=== PATIENT | female | born 1965 | race Caucasian/White ===

== ENCOUNTER → 2019-05-28 08:31 | Outpatient (BNVA) | payer BC, SELFPAY | PROVIDERS: Family Provider Nurse Practitioner Family; PCP Nurse Practitioner Family; Visit Provider Nurse Practitioner Family | DX: I10 Essential (primary) hypertension (principal); E78.5 Hyperlipidemia, unspecified; K21.9 Gastro-esophageal reflux disease without esophagitis | CPT/HCPCS: 36415; 80053; 80061; 85025 ==

== ENCOUNTER → 2019-12-03 08:43 | Outpatient (BNVA) | payer BC, SELFPAY | PROVIDERS: Family Provider Nurse Practitioner Family; PCP Nurse Practitioner Family; Visit Provider Nurse Practitioner Family | DX: I10 Essential (primary) hypertension (principal); E78.5 Hyperlipidemia, unspecified; K21.9 Gastro-esophageal reflux disease without esophagitis | CPT/HCPCS: 80053; 80061; 84443; 85025 ==

== ENCOUNTER → 2020-06-06 16:42 | Outpatient (BNVA) | payer OTHER, SELFPAY | PROVIDERS: Family Provider Nurse Practitioner Family; PCP Nurse Practitioner Family; Visit Provider Nurse Practitioner Family | DX: I10 Essential (primary) hypertension (principal); E78.5 Hyperlipidemia, unspecified; K21.9 Gastro-esophageal reflux disease without esophagitis; M54.41 Lumbago with sciatica, right side | CPT/HCPCS: 80053; 80061; 84443; 85025 ==

== ENCOUNTER → 2020-06-14 16:26 | Outpatient (BNVA) | payer OTHER, SELFPAY | PROVIDERS: Family Provider Nurse Practitioner Family; PCP Nurse Practitioner Family; Visit Provider Nurse Practitioner Family | DX: I10 Essential (primary) hypertension (principal); E78.5 Hyperlipidemia, unspecified; K21.9 Gastro-esophageal reflux disease without esophagitis; M54.41 Lumbago with sciatica, right side; R74.8 Abnormal levels of other serum enzymes | CPT/HCPCS: 72100 ==

== ENCOUNTER → 2020-08-28 11:51 | Outpatient (BNVA) | payer OTHER, SELFPAY | PROVIDERS: Family Provider Nurse Practitioner Family; PCP Nurse Practitioner Family; Visit Provider Nurse Practitioner Family | DX: I10 Essential (primary) hypertension (principal) | CPT/HCPCS: 80053 ==

== ENCOUNTER → 2020-11-13 16:19 | Outpatient (BNVA) | payer OTHER, SELFPAY | PROVIDERS: Family Provider Nurse Practitioner Family; PCP Nurse Practitioner Family; Visit Provider Nurse Practitioner Family | DX: I10 Essential (primary) hypertension (principal); E78.5 Hyperlipidemia, unspecified; K21.9 Gastro-esophageal reflux disease without esophagitis | CPT/HCPCS: 80053; 80061; 84443; 85025 ==

== ENCOUNTER → 2020-12-19 16:05 | Outpatient (BNVA) | payer OTHER, SELFPAY | PROVIDERS: Family Provider Nurse Practitioner Family; PCP Nurse Practitioner Family; Visit Provider Nurse Practitioner Family | DX: R79.89 Other specified abnormal findings of blood chemistry (principal); I10 Essential (primary) hypertension | CPT/HCPCS: 84443 ==

== ENCOUNTER 2021-01-14 12:19 | Emergency (ER) | payer OTHER, SELFPAY ==
[2021-01-14 12:26] VITALS: BP 149/94; PULSE 99; RESP 18; TEMP 36.3; O2SAT 96; BMI 33.1
--- NOTE | 2021-01-14 12:55 | XRR_ITS ---
PROCEDURE INFORMATION: Exam: XR Lumbosacral Spine Exam date and time: 01/14/2021 12:55 PM Age: 55 years old Clinical indication: Low back pain TECHNIQUE: Imaging protocol: XR of the lumbosacral spine. Views: 2 or 3 views. COMPARISON: CR XR lumbar spine 2-3V* [id number] 06/14/2020 4:26 PM FINDINGS: Bones/joints: Mild scoliosis and degenerative change. Anatomic alignment. Soft tissues: Unremarkable. XR/XR lumbar spine 2-3V* [id number] IMPRESSION: Mild scoliosis and degenerative change.
--- NOTE | 2021-01-14 12:57 | W.ED.GENADLT ---
HPI - General Adult General: Chief complaint: Back Pain/Injury Stated complaint: LOWER BACK PAIN RUNNING DOWN BOTH LEGS Time Seen by Provider: 01/14/21 12:32 History of Present Illness: HPI narrative: CC: Back pain HPI: 55yo patient w/ hx of HLD, HTN presenting to the ED with acute worsenign back pain x 3 days. Pain started 3 days ago after patient went home and now has had significant left lower back pain with radiation to the L leg. Patient reports significant bending at work. Endorsing taking tylenol, Nyquil for pain without symptom improvements. Today, patients denies trauma to the back, fever/chill/IVDU, LE weakness, saddle anesthesia/bowel incontinence/bladder incontinence, or hx of recent weight loss or cancer. In addition, he does not have a history of kidney stone or urinary symptoms/hx of UTI. Onset: 3 days ag Duration: 3 days Location: Back pain with radiation to the L leg Severity: moderate Review of Systems Narrative: Constitutional: No fever, no chills. HEENT: No vision changes CV: No chest pain, no palpitations PULM: No cough, no dyspnea. GI: No abdominal pain, no N/V/D. : No dysuria MSKEL: No edema SKIN: No new rashes, no lesions. NEURO: No headache, no focal weakness. HEME: No visible bruises PSYCH: Normal mood BACK: +L-sided lumbar paraspinal pain radiating to the leg [facility] ED PFSH: Medical History Dyslipidemia GERD (gastroesophageal reflux disease) HTN (hypertension) Surgical History No pertinent past surgical history Family History Father Cancer Hypertension Mother Cancer Diabetes Hypertension Stroke Denies family history of CAD (coronary artery disease) Suicide Lung disease Social History Smoking and tobacco status: never smoked Alcohol intake: never Lives independently: Yes Household members: spouse Housing: House Marital status: History of recent travel: No Physical Exam Narrative: EXAM NARRATIVE: Head: Atraumatic Eyes: PERRL, conjunctiva without injection ENT: Mucous membrane moist NECK: Supple without lymphadenopathy LUNGS: CTA CV: RRR ABDOMEN: Soft, nontender EXTREMITY: Normal ROM, 5/5 strength in hip/knee/ankle f/e bilaterally, sensation intact bilaterally in the LE, +straight leg test on L side SKIN: No rash or erythema NEURO: Awake and alert. No focal motor deficits. PSYCH: Normal mood and affect. : No saddle anesthesia BACK: +mild +L3 mildline and paraspinal tenderness, no step off, obvious deformity, hip stable,+ L paraspinal lumbar tenderness with radiation to the L side Course Vital Signs: Vital signs: Vital Signs Temperature 97.4 F L 01/14/21 12:26 Pulse Rate 86 01/14/21 14:15 Respiratory Rate 18 01/14/21 14:15 Blood Pressure 161/90 01/14/21 14:15 Pulse Oximetry 96 01/14/21 14:15 MDM - General Adult MDM Narrative: Medical decision making narrative: 55yo patient w/ hx of chronic lumbar pain with radiation to the L side presenting to the ED with acute worsening lumbar pain x 4 days, now has pain with ambulation. Neurological exam including LE exam intact. The Patient is able to bear weight on legs and ambulate with moderate pain. No red flags of IVDU/fever, hx or symptomatology of cancer w/ mets to the bones, neurological findings or bowel or bladder incontinence, or acute trauma/fracture of the vertebral columns. [1:30PM] On reassessment, the patient reports the pain is significantly improved with medications. Patient is now able to ambulate in the ED with only mild pain. At the present time, I have discussed the importance for the patient to follow up with orthopedics SAVANNAH and the patient agrees. No suspicion for acute cord compression at this time. Rx: Tylenol 500mg Q6Hrs, Prednisone 50mg daily x 5 doses, Lidocaine patch Qdaily, and norflex 100mg BID PRN pain Disposition: Discharge. Patient is given SRP for any focal weakness, intractable pain, fever/chill, any signs of bowel or bladder incontinence. Patient is instructed to follow up with the orthopedics provider. I have provided an additional orthopedic referral for the patient should the patient need it. Patient verbalizes understanding and plans to do so in the next fews. Imaging Data^: Other Imaging: Radiologist's impression: [facility] [id number] [place], [place] [address]FYzt ReportSigned Patient: Jose Angel Montesinos #: [id number]: 1965Acct#:[id number]/Sex: 55 / FADM Date: 01/14/21Loc: ERRoom/Bed:Attending Dr: Ordering Provider/Ordering MD: Sydnie Phelan MD Date of Service: 01/14/21 Procedure(s): XR lumbar spine 2-3V* [id number] Accession Number(s): [id number] Report Number: [id number] PROCEDURE INFORMATION: Exam: XR Lumbosacral Spine Exam date and time: 01/14/2021 12:55 PM Age: 55 years old Clinical indication: Low back pain TECHNIQUE: Imaging protocol: XR of the lumbosacral spine. Views: 2 or 3 views. COMPARISON: CR XR lumbar spine 2-3V* [id number] 06/14/2020 4:26 PM FINDINGS: Bones/joints: Mild scoliosis and degenerative change. Anatomic alignment. Soft tissues: Unremarkable. XR/XR lumbar spine 2-3V* [id number] IMPRESSION: Mild scoliosis and degenerative change. Dictated By:Collins Luong MDSigned By:Collins Luong MDSigned Date/Time:01/14/21 1359DD/ 1358 Discharge Plan Discharge Patient Disposition: Home Clinical Impression: Lower back pain Condition: Stable Prescriptions: New Tylenol Extra Strength 500 mg tablet 500 mg PO TID PRN (Reason: pain) 30 Days Qty: 90 RF: 0 lidocaine 5 % adhesive patch,medicated 1 patch topical DAILY PRN (Reason: back pain) 30 Days Qty: 30 RF: 0 prednisone 50 mg tablet 50 mg PO DAILY PRN (Reason: back pain) 5 Days Qty: 5 RF: 0 orphenadrine citrate 100 mg tablet extended release 100 mg PO BID PRN (Reason: back pain) 10 Days Qty: 20 RF: 0 No Action lisinopril 40 mg tablet 40 mg PO ONCE 30 Days Qty: 30 RF: 5 famotidine 40 mg tablet 40 mg PO .hs 30 Days Qty: 30 RF: 5 pravastatin 20 mg tablet 20 mg PO DAILY 30 Days Qty: 30 RF: 5 Discharge Orders: Discharge ED (Routine); Ordered 01/14/21 Ordered By: Sydnie Phelan Referrals: Radha Vazquez FNP-C [Primary Care Provider] - Discharge Diet: Advance as tolerated Discharge Activity: Resume usual activity Patient Instructions: Acute Low Back Pain (ED) Activity Restrictions/Additional Instructions: Please follow up with physical therapy and orthopedics provider as needed for back pain. Our clinical case manager will call you. If you do not hear from us, you can request therapy with your PCP. Come back if you have worsening pain, leg weakness, difficulty controlling your bowel or bladder, or any new or concerning issues. Stand Alone Forms: Work/School Release Coding Level of Care Code ED Sales Negotiator for Karlos Murphy
[2021-01-14] MEDS: predniSONE 20 mg Tablet 60 MG PO (13:04)
[2021-01-14] MEDS: acetaminophen-codeine 300-30mg Tablet 1 TAB PO (13:05)
[2021-01-14] MEDS: lidocaine 5% Patch 1 PATCH TOPICAL (13:28)
[2021-01-14] MEDS: ondansetron 4 MG Tablet PO (13:35)
[2021-01-14 14:15] VITALS: BP 161/90; PULSE 86; RESP 18; O2SAT 96
--- NOTE | 2021-01-15 09:44 | DCPLANNER ---
manager pet had message to schedule a followup appointment for patient with ortho and physical therapy. manager pet called the ortho clinic, spoke with Alona, gave clinic patients information. manager pet was told that patients information would be printed and reviewed. Clinic will call patient with appointment information. manager pet called physical therapy about a referral to physical therapy. manager pet did not have an order for this referral. manager pet was told that patient would need to follow up with primary care to get an order for physical therapy. manager pet called patient at phone number [phone], a voicemail was left for patient to return medical case manager phone call. manager pet also called phone number [phone], unable to speak with patient at this time.
--- NOTE | 2021-01-16 08:10 | DCPLANNER ---
Patient has a follow up appointment scheduled for Saturday, January 23, 2021 at 8:15 with Christel Sanchez at ortho. Clinic will call patient with appointment information.
--- NOTE | 2021-01-24 13:34 | DCPLANNER ---
Patient had an appointment scheduled for 01.23.21 - appointment was rescheduled.
== END 2021-01-14 14:16 | disposition home or self-care (01) ==
PROVIDERS: Emergency Provider Emergency Medicine; PCP Nurse Practitioner Family
DX: M54.5 Low back pain (principal); E78.5 Hyperlipidemia, unspecified; I10 Essential (primary) hypertension
CPT/HCPCS: 72100; 99283; J7512; Q0162

== ENCOUNTER → 2021-01-18 08:46 | Outpatient (BNVA) | payer OTHER, SELFPAY | PROVIDERS: PCP Nurse Practitioner Family; Visit Provider Nurse Practitioner Family | DX: Z20.822 Contact with and (suspected) exposure to COVID-19 (principal) | CPT/HCPCS: 87635 ==

== ENCOUNTER → 2021-07-04 16:35 | Outpatient (BNVA) | payer OTHER, SELFPAY | PROVIDERS: PCP Nurse Practitioner Family; Visit Provider Nurse Practitioner Family | DX: I10 Essential (primary) hypertension (principal); K21.9 Gastro-esophageal reflux disease without esophagitis; E78.5 Hyperlipidemia, unspecified | CPT/HCPCS: 80053; 80061; 84443; 85025 ==

== ENCOUNTER → 2021-12-11 16:08 | Outpatient (BNVA) | payer OTHER, SELFPAY | PROVIDERS: PCP Nurse Practitioner Family; Visit Provider Nurse Practitioner Family | DX: I10 Essential (primary) hypertension (principal); E11.65 Type 2 diabetes mellitus with hyperglycemia; K21.9 Gastro-esophageal reflux disease without esophagitis; E78.5 Hyperlipidemia, unspecified; L91.8 Other hypertrophic disorders of the skin; Z12.39 Encounter for other screening for malignant neoplasm of breast | CPT/HCPCS: 80053; 80061; 84443; 85025 ==

== ENCOUNTER 2022-01-02 15:18 | Outpatient (CLI) | payer OTHER, SELFPAY ==
--- NOTE | 2022-01-02 15:24 | MM_ITS ---
WS: [id number] BILATERAL 3D TOMOSYNTHESIS DIGITAL SCREENING MAMMOGRAPHY WITH CAD CLINICAL INFORMATION: Z12.39 - Encounter for other screening for malignant neop... HISTORY: Screening mammogram. No current complaints. COMPARISON: None. TECHNIQUE: Bilateral CC and MLO views. FINDINGS: The breasts are composed of heterogeneous fibroglandular density tissue, which can limit the detectio n of small underlying mass lesions. Tiny punctate calcifications. Clustered calcifications. 6 mm ovoi d nodule subareolar RIGHT breast. Recommend ultrasound RIGHT breast in further evaluation. Unremarkable LEFT breast. MM/[place] [id number] IMPRESSION: BI-RADS: 0-Incomplete: Need additional imaging evaluation FOLLOW UP: Need Additional Imaging Recommendation ultrasound RIGHT breast in further evaluation of the subareolar nodule.
== END 2022-01-02 15:19 | disposition home or self-care (01) ==
LOC: RAD 15:19
PROVIDERS: PCP Nurse Practitioner Family; Visit Provider Nurse Practitioner Family
DX: Z12.31 Encounter for screening mammogram for malignant neoplasm of breast (principal)
CPT/HCPCS: 77063; 77067

== ENCOUNTER 2022-01-18 14:41 | Outpatient (CLI) | payer OTHER, SELFPAY ==
--- NOTE | 2022-01-18 14:47 | US_ITS ---
WS: [id number] ULTRASOUND BREAST RIGHT TECHNIQUE: Ultrasound right breast focused area of concern. CLINICAL INFORMATION: R92.8 - Other abnormal and inconclusive findings on diagn... COMPARISON: None. FINDINGS: Ultrasound RIGHT breast at the areola. Hypoechoic complex lesion 8 o'clock position areola with inter nal complex echogenicity. This is indeterminant and recommend further evaluation ultrasound-guided bi opsy. Lesion measures approximately 6.1 x 3.6 x 6.5 mm US/US breast RT limited* [id number] IMPRESSION: BI-RADS 4 suspicious FOLLOW UP: Ultrasound-guided biopsy
== END 2022-01-18 14:42 | disposition home or self-care (01) ==
LOC: RAD 14:42
PROVIDERS: PCP Nurse Practitioner Family; Visit Provider Nurse Practitioner Family
DX: R92.8 Other abnormal and inconclusive findings on diagnostic imaging of breast (principal)
CPT/HCPCS: 76642

== ENCOUNTER 2022-02-14 11:54 | Outpatient (CLI) | payer OTHER, SELFPAY ==
--- NOTE | 2022-02-14 13:09 | US_ITS ---
WS: [id number] ULTRASOUND-GUIDED RIGHT BREAST BIOPSY HISTORY: N64.9 - Disorder of breast, unspecified COMPARISON: 01/18/2022 and 01/02/2022 Procedure, risks and complications are explained to the patient. Medications are reviewed. Consent is obtained. The mass in the RIGHT breast is localized with ultrasound. Mass localizes to the areolar at 8:00. Ski n is cleansed with ChloraPrep and anesthetized with 1% buffered lidocaine. Small dermatome is made. U nder sterile conditions mass is biopsied with a 14-gauge Achieve needle. Only a single biopsy was per formed. The mass completely collapsed after the first biopsy. There is no residual mass. Breast tissue marker (Bard ultrasound enhanced ribbon): None. Patient left the radiology suite with no complications. Patient is instructed to return to [facility] or [facility] with any concerns. US/[place] [id number] IMPRESSION: 1. Uncomplicated core needle biopsy complex cystic mass at 8:00. Mass complete ly collapsed after the initial biopsy. PATHOLOGY: Benign fibrocystic changes and apocrine metaplasia. No malignancy. RECOMMENDATION: Return to annual screening mammography.
== END 2022-02-14 11:55 | disposition home or self-care (01) ==
PROVIDERS: PCP Nurse Practitioner Family; Visit Provider Nurse Practitioner Family
DX: N64.9 Disorder of breast, unspecified (principal); N63.13 Unspecified lump in the right breast, lower outer quadrant; N60.81 Other benign mammary dysplasias of right breast
CPT/HCPCS: 19083; 88305

== ENCOUNTER → 2022-06-17 14:38 | Outpatient (BNVA) | payer OTHER, SELFPAY | PROVIDERS: PCP Nurse Practitioner Family; Visit Provider Nurse Practitioner Family | DX: I10 Essential (primary) hypertension (principal); K21.9 Gastro-esophageal reflux disease without esophagitis; E78.5 Hyperlipidemia, unspecified; Z12.4 Encounter for screening for malignant neoplasm of cervix; L21.9 Seborrheic dermatitis, unspecified | CPT/HCPCS: 80053; 80061; 84443; 85025 ==

== ENCOUNTER → 2022-07-30 09:38 | Outpatient (BNVA) | payer OTHER, SELFPAY | PROVIDERS: PCP Nurse Practitioner Family; Visit Provider Nurse Practitioner Family | DX: R05.9 Cough, unspecified (principal); J06.9 Acute upper respiratory infection, unspecified; R09.81 Nasal congestion | CPT/HCPCS: 87426 ==

== ENCOUNTER 2022-10-26 18:59 | Emergency (ER) | payer OTHER, SELFPAY ==
[2022-10-26 19:13] VITALS: BP 148/75; PULSE 98; RESP 16; TEMP 36.8; O2SAT 97; BMI 35.4
--- NOTE | 2022-10-26 20:03 | CTR_ITS ---
PROCEDURE INFORMATION: Exam: CT Head Without Contrast Exam date and time: 10/26/2022 8:10 PM Age: 57 years old Clinical indication: Pain; Headache; Patient HX: FRIEDMAN with n/v; Additional info: Headache, vomiting TECHNIQUE: Imaging protocol: Computed tomography of the head without contrast. Radiation optimization: All CT scans at this facility use at least one of these dose optimization techniques: automated exposure control; mA and/or kV adjustment per patient size (includes targeted exams where dose is matched to clinical indication); or iterative reconstruction. REPORTING DATA: Count of CT and Cardiac NM exams in prior 12 months: This patient has received 0 known CTs and 0 known cardiac nuclear medicine studies in the 12 months prior to the current study. COMPARISON: No relevant prior studies available. RADIATION DOSE METRICS: Total DLP (mGy-cm): 1007.11 FINDINGS: Brain: Normal. No hemorrhage. Unremarkable white matter. No mass effect. Cerebral ventricles: No ventriculomegaly. Paranasal sinuses: Several in mucous retention cysts versus polyps in the visualized portions of the paranasal sinuses measuring up to approximately 11 mm in size in the right maxillary sinus. Mastoid air cells: Visualized mastoid air cells are well aerated. Bones/joints: Unremarkable. No acute fracture. Soft tissues: Unremarkable. CT/CT head wo con* [id number] IMPRESSION: Negative for intracranial hemorrhage or mass effect.
--- NOTE | 2022-10-26 20:04 | W.ED.NAVMDI ---
HPI - Nausea/Vomiting/Diarrhea General: Chief complaint: Nausea/Vomiting/Diarrhea Stated complaint: Nausea Headache Time Seen by Provider: 10/26/22 19:24 Source: patient History of Present Illness: 57-year-old female with no real history of headache. She presents with body aches all over, significant headache, and vomiting for the past 24 hours or so. 2 episodes of loose stool. No fever. No other specific symptoms including no cough. No history of bug bites. MD elicited complaint: nausea and vomiting Pertinent past history: other Onset (ago): hour(s) Description of vomiting: food contents Description of diarrhea: watery Associated nausea: Yes Associated abdominal pain: No Location of pain: None Exacerbating factors: eating Relieving factors: none Associated symtoms: Reports headache(s), anorexia, myalgias and nausea; Denies altered mental status, change in vision, chest pain, cough, diaphoresis, decreased urine output, dizziness, fevers/chills, rash or short of breath Review of Systems Const: Denies: fever(s) or diaphoresis Eyes: Denies: change in vision ENMT: Denies: throat pain Card: Denies: chest pain Resp: Denies: dyspnea, productive cough or non-productive cough GI: Reports: nausea; Denies: abdominal pain : Denies: flank pain Skin/Breast: Denies: rash Neuro: Reports: headache(s); Denies: dizziness PFSH ED PFSH: Medical History Dyslipidemia GERD (gastroesophageal reflux disease) HTN (hypertension) Rosacea Surgical History No pertinent past surgical history Family History Father Cancer Hypertension Mother Cancer Diabetes Hypertension Stroke Denies family history of CAD (coronary artery disease) Suicide Lung disease Social History Smoking and tobacco status: never smoked Second hand smoke exposure: No Smoking risk assessment/counseling performed?: No Alcohol intake: never Desire information about alcohol rehabilitation?: No Counseling given: No Substance/Drug Use: unknown Desire information about substance/drug rehabilitation?: No Counseling given: No Adopted: No Caregiver/support person: No Lives independently: Yes Household members: spouse Housing: House Marital status: service: No Do you think of yourself as: Straight/Heterosexual Current gender identity: Female Physical Exam Const: COMMON NORMALS: no acute distress EXAM LIMITATIONS: no altered mental status GENERAL APPEARANCE: cooperative; not ill appearing and not frail appearing HENMT: COMMON NORMALS: normocephalic, atraumatic and Normal external nose present HEAD & SCALP: normocephalic and atraumatic FACE & SINUS: normal facial exam and face symmetric NOSE: Normal external nose present Eye: COMMON NORMALS: Equal, round and reactive pupils present and EOMs intact bilaterally PUPIL: Yes Equal, round and reactive pupils present Neck/C-Spine: GENERAL: Yes trachea midline Chest: CHEST: Yes Symmetrical chest wall rise Resp: COMMON NORMALS: normal respiratory effort, No retractions, No use of accessory muscles and clear to auscultation bilaterally AUSCULTATION: clear to auscultation bilaterally Cardio: COMMON NORMALS: regular rate and regular rhythm RATE: regular rate RHYTHM: regular rhythm GI: COMMON NORMALS: Normal to inspection, nondistended, normoactive bowel sounds present Extremity: COMMON NORMALS: no pedal edema Neuro: RICK COMA SCALE: document GCS findings Rick coma scale eye opening: Spontaneous Coleridge coma scale verbal response: Orientated Rick coma scale motor response: Obey commands Coleridge coma scale total score: 15 SENSORY EXAM: Yes extremities (intact) Psych: COMMON NORMALS: speech normal SPEECH: Yes normal speech Skin: COMMON NORMALS: no rashes or lesions noted GENERAL SKIN EXAM: no rashes or lesions noted Course Vital Signs: Vital signs: Vital Signs Temperature 98.2 F 10/26/22 19:13 Pulse Rate 80 10/26/22 22:39 Respiratory Rate 18 10/26/22 22:39 Blood Pressure 141/92 10/26/22 22:39 Pulse Oximetry 96 10/26/22 22:39 Oxygen Delivery Me thod Room Air 10/26/22 21:30 MDM - Nausea/Vomiting/Diarrhea Medical Decision Making 57-year-old female with headache nausea and vomiting. White blood cell count is 11.5. No significant left shift. BMP is normal. Liver enzymes are normal. Lipase is 31. Urinalysis is negative. COVID antigen testing is negative. Head CT is negative for intracranial hemorrhage or mass effect. She is improved after IV fluids and medication. She will be discharged home, to monitor her symptoms. Return for any worsening or return of symptoms. Antiemetic scheduled for the first 24 hours then as needed. Lab Data 10/26/22 19:57 10/26/22 19:[address] 10/26/22 20:03 IMPRESSION: Negative for intracranial hemorrhage or mass effect. Laboratory Results WBC 11.5 10^3/uL (4.0-10.0) H 10/26/22 19:57 RBC 4.46 10^6/uL (4.1-5.3) 10/26/22 19:57 Hgb 13.7 g/dL (11.5-15.3) 10/26/22 19:57 Hct 40.4 % (37.0-47.0) 10/26/22 19:57 MCV 90.6 fl (81-99) 10/26/22 19:57 MCH 30.7 pg (28.0-34.0) 10/26/22 19:57 MCHC 33.9 g/dL (30.0-36.0) 10/26/22 19:57 RDW 12.1 % (12.1-15.1) 10/26/22 19:57 Plt Count 271 10^3/cmm (130-400) 10/26/22 19:57 MPV 10.6 fL (7.4-10.4) H 10/26/22 19:57 Neut % (Auto) 74.0 % 10/26/22 19:57 Lymph % (Auto) 14.1 % 10/26/22 19:57 Calvert % (Auto) 9.7 % 10/26/22 19:57 Eos % (Auto) 1.6 % 10/26/22 19:57 Baso % (Auto) 0.3 % 10/26/22 19:57 Neut # (Auto) 8.55 10^3/uL (1.8-7.7) H 10/26/22 19:57 Lymph # (Auto) 1.6 10^3/uL (0.8-4.8) 10/26/22 19:57 Calvert # (Auto) 1.1 10^3/uL (0.2-0.9) H 10/26/22 19:57 Eos # (Auto) 0.2 10^3/uL (0.0-0.8) 10/26/22 19:57 Baso # (Auto) 0.0 10^3/uL (0.0-0.1) 10/26/22 19:57 Nucleated RBC % (auto) 0 % 10/26/22 19:57 Nucleated RBCs # 0.0 /100WBC 10/26/22 19:57 Sodium 138 mmol/L (136-145) 10/26/22 19:57 Potassium 4.1 mmol/L (3.5-5.1) 10/26/22 19:57 Chloride 102 mmol/L (98-107) 10/26/22 19:57 Carbon Dioxide 25 mmol/L (22-29) 10/26/22 19:57 Anion Gap 15.1 (5-19) 10/26/22 19:57 BUN 11 mg/dL (6-20) 10/26/22 19:57 Creatinine 0.9 mg/dL (0.5-0.9) 10/26/22 19:57 GFR Calculation 64.5 mL/min (90-130) L 10/26/22 19:57 Glucose 93 mg/dL (65-115) 10/26/22 19:57 Calculated Osmolality 285 mOsm/kg (285-295) 10/26/22 19:57 Calcium 9.0 mg/dL (8.5-10.5) 10/26/22 19:57 Total Bilirubin 0.5 mg/dL (0.15-1.2) 10/26/22 19:57 AST 19 U/L (0-32) 10/26/22 19:57 ALT 21 U/L (0-33) 10/26/22 19:57 Alkaline Phosphatase 84 U/L (35-105) 10/26/22 19:57 C-Reactive Protein 28.4 mg/L (0.0-4.9) H 10/26/22 19:57 Total Protein 7.3 g/dL (6.6-8.7) 10/26/22 19:57 Albumin 4.1 g/dL (3.5-5.2) 10/26/22 19:57 Globulin 3.2 g/dL (1.3-4.6) 10/26/22 19:57 Lipase 31 U/L (13-60) 10/26/22 19:57 Urine Color Yellow (Yellow) 10/26/22 21:42 Urine Appearance Hazy (CLEAR) A 10/26/22 21:42 Urine pH 5 (5-7) 10/26/22 21:42 Ur Specific Vilas 1.020 (1.005-1.030) 10/26/22 21:42 Urine Protein Neg (Negative) 10/26/22 21:42 Urine Glucose (UA) Norm (Normal) 10/26/22 21:42 Urine Ketones 1+ (Negative) H 10/26/22 21:42 Urine Blood Neg (Negative) 10/26/22 21:42 Urine Nitrate Negative (Negative) 10/26/22 21:42 Urine Bilirubin Neg (Negative) 10/26/22 21:42 Urine Urobilinogen Norm mg/dL (Negative) 10/26/22 21:42 Ur Leukocyte Esterase Trace (Negative) H 10/26/22 21:42 Urine RBC None /hpf (0-2) 10/26/22 21:42 Urine WBC 0-4 /hpf (0-5) H 10/26/22 21:42 Ur Squamous Epith Cells 0-4 /hpf (0-5) H 10/26/22 21:42 Amorphous Sediment Not Reportable 10/26/22 21:42 Urine Bacteria 1+ /hpf (NONE) H 10/26/22 21:42 Urine Mucus 2+ /hpf 10/26/22 21:42 SARS-CoV-2 Ag (Rapid) negative (Negative) 10/26/22 21:13 Discharge Plan Discharge Patient Disposition: Home Clinical Impression: Gastroenteritis Condition: Stable Prescriptions: New ondansetron 4 mg film 4 mg PO DAILY PRN (Reason: nausea and vomiting) Qty: 10 0RF No Action Hair,Skin and Nails(FA-biotin) 66.7-1,000 mcg tablet PO famotidine 40 mg tablet 40 mg PO .hs 30 Days Qty: 30 5RF pravastatin 20 mg tablet 20 mg PO DAILY 30 Days Qty: 30 5RF lisinopril 40 mg tablet 40 mg PO DAILY Qty: 30 2RF metformin 500 mg tablet extended release 24 hr 1,000 mg PO DAILY Qty: 60 2RF metronidazole [Metrogel] 1 % gel 1 applic topical DAILY Qty: 60 0RF triamcinolone acetonide 0.5 % ointment 1 applic topical DAILY Qty: 15 2RF Rx Instructions: apply to neck, ears and hands furosemide [Lasix] 20 mg tablet 20 mg PO QAM Qty: 30 2RF Discharge Orders: Discharge ED (Routine); Ordered 10/26/22 Ordered By: George Castillo Referrals: Radha Vazquez FNP-C [Primary Care Provider] - 1-3 days Patient Instructions: Gastroenteritis (ED) Activity Restrictions/Additional Instructions: Take prescribed medications every 4 hours while awake for the first 24 hours scheduled. Then you may take as needed for nausea and vomiting. Start with a liquid diet for at least 12 hours, if no vomiting, you may increase as tolerated. Return for worsening pain, worsening headache, vomiting liquids despite medications, any other concerning symptoms. Coding Level of Care Code ED Space Sciences Director for Karlos Murphy
[2022-10-26 20:26] LABS: Basophils % 0.3 %; Eosinophils # 0.2 10^3/uL (0.0-0.8); Eosinophils % 1.6 %; Hematocrit 40.4 % (37.0-47.0); Hemoglobin 13.7 g/dL (11.5-15.3); Lymphocytes # 1.6 10^3/uL (0.8-4.8); Lymphocytes % 14.1 %; Mean Corpuscular HGB Conc 33.9 g/dL (30.0-36.0); Mean Corpuscular Hemoglobin 30.7 pg (28.0-34.0); Mean Corpuscular Volume 90.6 fl (81-99); Mean Platelet Volume 10.6 fL (7.4-10.4); Monocytes # 1.1 10^3/uL (0.2-0.9); Monocytes % 9.7 %; Neutrophils # 8.55 10^3/uL (1.8-7.7); Nucleated Red Blood Cells % 0 %; Platelet Count 271 10^3/cmm (130-400); Red Blood Count 4.46 10^6/uL (4.1-5.3); Red Cell Distribution Width 12.1 % (12.1-15.1); White Blood Count 11.5 10^3/uL (4.0-10.0)
[2022-10-26] MEDS: sodium chloride 0.9% 1,000 ML 999 ML IV (20:27)
[2022-10-26] MEDS: ondansetron 2 mg/ML SDV 2 mL 4 MG IVP (20:28)
[2022-10-26] MEDS: morphine 4 mg/mL SDV 1 mL IVP (20:30)
[2022-10-26 20:35] VITALS: BP 172/91; PULSE 85; O2SAT 97
[2022-10-26 20:54] LABS: Alanine Aminotransferase 21 U/L (0-33); Albumin Level 4.1 g/dL (3.5-5.2); Alkaline Phosphatase 84 U/L (35-105); Anion Gap 15.1 (5-19); Aspartate Amino Transferase 19 U/L (0-32); Blood Urea Nitrogen 11 mg/dL (6-20); C Reactive Protein 28.4 mg/L (0.0-4.9); Carbon Dioxide 25 mmol/L (22-29); Chloride 102 mmol/L (98-107); Globulin 3.2 g/dL (1.3-4.6); Glomerular Filtration Rate 64.5 mL/min (90-130); Glucose 93 mg/dL (65-115); Lipase 31 U/L (13-60); Osmolality Calculated 285 mOsm/kg (285-295); Potassium 4.1 mmol/L (3.5-5.1); Sodium 138 mmol/L (136-145); Total Bilirubin 0.5 mg/dL (0.15-1.2); Total Protein 7.3 g/dL (6.6-8.7)
[2022-10-26 21:30] VITALS: BP 170/87; PULSE 89; O2SAT 96
[2022-10-26 21:36] LABS: SARS Covid-2 Antigen negative (Negative)
[2022-10-26 21:54] LABS: Add Urine Microscopic? YES; Bilirubin Urine Neg (Negative); Blood Urine Neg (Negative); Glucose Urine UA Norm (Normal); Ketones Urine 1+ (Negative); Leukocyte Esterase Urine Trace (Negative); Nitrate Urine Negative (Negative); Protein Urine Neg (Negative); Urine Appearance Hazy (CLEAR); Urine Color Yellow (Yellow); Urobilinogen Urine Norm (Negative); pH Urine 5 (5-7)
[2022-10-26 21:58] LABS: Bacteria Urine 1+ /hpf; Mucus Urine 2+ /hpf; Squamous Epithelial Cell Urine 0-4 /hpf (0-5); WBC Urine 0-4 /hpf (0-5)
[2022-10-26 22:39] VITALS: BP 141/92; PULSE 80; RESP 18; O2SAT 96
== END 2022-10-26 22:34 | disposition home or self-care (01) ==
PROVIDERS: Emergency Provider Emergency Medicine; PCP Nurse Practitioner Family
DX: K52.9 Noninfective gastroenteritis and colitis, unspecified (principal); Z79.84 Long term (current) use of oral hypoglycemic drugs; Z20.822 Contact with and (suspected) exposure to COVID-19; E78.5 Hyperlipidemia, unspecified; I10 Essential (primary) hypertension
CPT/HCPCS: 36415; 70450; 80053; 81001; 83690; 85025; 86140; 87426; 96361; 96374; 96375; 99285; J2270; J2405; J7030

== ENCOUNTER → 2023-03-11 16:02 | Outpatient (BNVA) | payer OTHER, SELFPAY | PROVIDERS: PCP Nurse Practitioner Family; Visit Provider Nurse Practitioner Family | DX: I10 Essential (primary) hypertension (principal); E78.5 Hyperlipidemia, unspecified; L21.9 Seborrheic dermatitis, unspecified; K21.9 Gastro-esophageal reflux disease without esophagitis | CPT/HCPCS: 80053; 80061; 84443; 85025 ==

== ENCOUNTER → 2023-10-02 16:10 | Outpatient (BNVA) | payer OTHER, SELFPAY | PROVIDERS: PCP Nurse Practitioner Family; Visit Provider Nurse Practitioner Family | DX: I10 Essential (primary) hypertension (principal) | CPT/HCPCS: 80053; 80061; 84443; 85025 ==

== ENCOUNTER → 2023-11-12 15:57 | Outpatient (BNVA) | payer OTHER, SELFPAY | PROVIDERS: PCP Nurse Practitioner Family; Visit Provider Nurse Practitioner Family | DX: R73.09 Other abnormal glucose (principal); R79.89 Other specified abnormal findings of blood chemistry | CPT/HCPCS: 80053; 83036 ==

== ENCOUNTER → 2023-11-20 15:51 | Outpatient (BNVA) | payer OTHER, SELFPAY | PROVIDERS: PCP Nurse Practitioner Family; Visit Provider Family Medicine | DX: M25.532 Pain in left wrist (principal); M79.642 Pain in left hand | CPT/HCPCS: 73130 ==

== ENCOUNTER → 2023-12-12 08:52 | Outpatient (BNVA) | payer OTHER, SELFPAY | PROVIDERS: PCP Nurse Practitioner Family; Visit Provider Physician Assistant | DX: M65.4 Radial styloid tenosynovitis [de Quervain] (principal) | CPT/HCPCS: 73110 ==

== ENCOUNTER 2025-05-23 08:11 | Outpatient (CLI) | payer OTHER, SELFPAY ==
--- NOTE | 2025-05-23 08:16 | XR_ITS ---
WS: [id number] Left foot, 2 views, 05/23/2025 Clinical Data: LEFT FOOT PAIN Comparison: None. Findings: No fractures or dislocations are seen. No bone destruction or erosion is noted. The joint spaces and soft tissues are normal. There is a plantar spur and an Achilles spur. XR/XR foot LT 2V [id number] Impression: Negative left foot.
== END 2025-05-23 08:12 | disposition home or self-care (01) ==
LOC: RAD 08:13
PROVIDERS: PCP Nurse Practitioner Family; Visit Provider Nurse Practitioner Family
DX: M79.672 Pain in left foot (principal); M77.32 Calcaneal spur, left foot; M76.62 Achilles tendinitis, left leg
CPT/HCPCS: 73620